=== PATIENT | female | born 1985 | race African-American/Black ===

== ENCOUNTER 2023-08-30 13:22 | Emergency (ER) | payer OTHER, SELFPAY ==
[2023-08-30 13:23] VITALS: BMI 34.5
[2023-08-30 13:25] VITALS: BP 171/102
[2023-08-30 13:59] LABS: % Basophils 0.2 % (0-2); % Eosinophils 1.3 % (0-6); % Immature Granulocytes 0.4 % (0-0.5); % Lymphocytes 27.8 % (20.5-51.1); % Monocytes 4.9 % (1.7-9.3); % Neutrophils 65.4 % (42.2-75.2); Absolute Eosinophils 0.1 10^3/uL (0-0.7); Absolute Lymphocytes 1.5 10^3/uL (1.2-3.4); Absolute Monocytes 0.3 10^3/uL (0.1-0.6); Absolute Neutrophils 3.5 10^3/uL (1.4-6.5); Hematocrit 29.7 % (37.0-47.0); Hemoglobin 10.4 g/dL (12.0-16.0); Mean Corpuscular Volume 88.7 fL (81.0-99.0); Mean Platelet Volume 11.7 fL (7.4-10.4); Nucleated Red Blood Cells % 0 %; Platelet Count 159 10^3/uL (130-400); Red Blood Cell Count 3.35 10^6/uL (4.20-5.40); Reticulocyte Count 8.6 % (0.4-2.8); White Blood Cell Count 5.3 10^3/uL (4.8-10.8)
[2023-08-30 14:09] LABS: ALT (SGPT) 41 U/L (0-35); AST (SGOT) 53 U/L (14-36); Albumin 5.1 g/dl (3.5-5.0); Alkaline Phosphatase 56 U/L (38-126); Blood Urea Nitrogen 8 mg/dl (7-17); Calcium 9.8 mg/dl (8.4-10.2); Carbon Dioxide 24 mmol/L (22-30); Chloride 106 mmol/L (98-107); Glucose 126 mg/dl (70-99); Sodium 137 mmol/L (135-145); Total Bilirubin 1.4 mg/dl (0.2-1.3); Total Protein 8.2 g/dl (6.3-8.2); eGFR > 60.00
--- NOTE | 2023-08-30 16:47 | ED.GENMED ---
History of Present Illness
General
Chief Complaint: Extremity Pain (non-traumatic)
Source: patient
Time Seen by Provider: 08/30/23 16:05
Travel History
Have you had any contact with someone who has COVID-19?: No
Do you have any symptoms of coronavirus? Fever > 100 degrees, chills, cough, shortness of breath, sore throat, loss of taste or smell, muscle aches, or headache?: No
History of Present Illness
History of Present Illness:
38-year-old female who presents with pain typical for her sickle cell. Patient reports pain in the left arm, chest, back and starting to form in her legs. The patient states this is typical for her crisis. Her line supply is at [facility].
Patient states she does not have pain medicines at home. No fevers or shortness of breath. No motor weakness. No headache
Past History
Past History
ED Past Medical History: Other (Sickle cell disease, GERD)
ED Past Surgical History: and Orthopedic
Phy Exam
Physical Exam
Physical Exam:
CONSTITUTIONAL Patient alert and oriented to person, place and time. Well-appearing. Vital signs reviewed.
HEAD atraumatic, normocephalic.
EYES eyelids normal to inspection, Extraocular muscles intact, Conjunctiva normal, Sclera normal.
NECK normal range of motion, Trachea midline, no jugular venous distention.
RESPIRATORY CHEST No respiratory distress noted, Chest expansion equal, Bilateral breath sounds clear.
CARDIOVASCULAR regular rate and rhythm, Heart sounds normal.
ABDOMEN abdomen nontender, Bowel sounds normal. No distention.
BACK normal inspection, no obvious deformities
UPPER EXTREMITY range of motion normal, Motor strength normal, no cyanosis, no edema.
LOWER EXTREMITY range of motion normal, Motor strength normal, no cyanosis, no edema.
NEURO Speech normal, No focal motor deficits, Mclean coma scale 15, Memory normal, Cranial Nerves intact to screening exam.
Course
Orders/Labs/Results
Orders:
Orders
08/30/23 13:33
Complete Blood Count/With Diff Urgent
Comprehensive Metabolic Panel Urgent
Reticulocyte Count Urgent
08/30/23 16:57
HYDROmorphone [Dilaudid] 1 mg IV NOW STA
Ondansetron Injectable [Zofran] 4 mg IV NOW STA
08/30/23 16:59
EKG [Electrocardiogram (*1)] Stat
Reason for Study: Chest Pain
EKG- Treatment ONCE
CR Chest - 2 Views Urgent
Comment:
Reason For Exam: cp, sickle cell
08/30/23 17:41
0.9% Sodium Chloride 1000 ml [Nss] 1,000 ml IV BOLUS
08/30/23 18:02
HYDROmorphone [Dilaudid] 2 mg IV NOW STA
08/30/23 19:15
HYDROmorphone [Dilaudid] 2 mg IV NOW STA
Abnormal Lab Results
08/30/23
13:33
RBC 3.35 L 10^6/uL
(4.20-5.40)
Hgb 10.4 L g/dL
(12.0-16.0)
Hct 29.7 L %
(37.0-47.0)
RDW 17.0 H %
(11.5-14.5)
MPV 11.7 H fL
(7.4-10.4)
Retic Count 8.6 H %
(0.4-2.8)
Creatinine 0.5 L mg/dL
(0.6-1.0)
Glucose 126 H mg/dl
(70-99)
Total Bilirubin 1.4 H mg/dl
(0.2-1.3)
AST 53 H U/L
(14-36)
ALT 41 H U/L
(0-35)
Albumin 5.1 H g/dl
(3.5-5.0)
08/30/23 13:33
08/30/23 13:33
Vital Signs
Temp: 98 F
Blood pressure: 132/78
Initial and Last Documented VS:
Initial Vital Signs
Temp Pulse Resp BP Pulse Ox
100.0 F 122 18 171/102 99
08/30/23 13:25 08/30/23 13:25 08/30/23 13:25 08/30/23 13:25 08/30/23 13:25
Last Documented Vital Signs
Temp Pulse Resp BP Pulse Ox
98 F 122 18 132/78 99
08/30/23 16:48 08/30/23 13:25 08/30/23 13:25 08/30/23 16:48 08/30/23 13:25
MDM/Problems Addressed
MDM/Problems Addressed:
Vaso-occlusive crisis
*Radiology
Radiology exam reviewed: all reviewed NAD by ED Provider
*Pulse Oximetry
Patient hypoxic: no
*EKG
Interpreted by ED Provider?: Yes
Interpretation: normal
Rate: normal
Rhythm: sinus
Fowler: normal axis
QRS Pattern: normal QRS
Ischemia: no ischemia
*Special Effects Specialist Interpretation
Rate: normal
Interpretation: normal
Rhythm: sinus
*Critical Care Note
Total Time (30-74mins, 75-104mins- exclusive of procedures): 40 minutes
Data Reviewed
Source: patient
Further Testing Considered But Not Given:
Consider blood cultures but afebrile no clinical suspicion for bacteremia
Patient Management
Escalation/DeEscalation of care consider admission/obs:
Patient does feel better. I do think outpatient follow-up and management is reasonable. No fever. No hypoxia. Outpatient hematology follow-up recommended
Update Note
Update Note:
PDMP shows 60 oxycodone filled 4 days ago. Will refer to her doctor for further medications if needed
ED Attending Note
-
Portions of this chart may have been created with voice recognition software.� Occasional wrong word or��sound alike� substitutions may have occurred due to the inherent limitations of voice recognition software.
Discharge Plan
Departure
Patient Disposition: Home (Routine Discharge)
Date of Disposition: 08/30/23
Time of Disposition: 20:18
Patient with high blood pressure during this ER visit?: No
Discharge Problem:
Sickle cell crisis
Instructions: Sickle Cell Disease Pain ED
Referrals:
UNKNOWN - PT DOES,NOT KNOW [Family Provider] -
Activity Restrictions/Additional Instructions:
Please drink plenty fluids and see your line supply in the next 3 days for follow-up and reevaluation. Return immediately for difficulty breathing, chest pain, fevers or any other concerns.
Interventions
Interventions:
*Risk Screen - Suicide Last Done: 08/30/23 13:25
*General Assessment Last Done: 08/30/23 13:25
*Neglect/Abuse Screening Last Done: 08/30/23 13:25
*ED COVID-19 Vaccine History Last Done: 08/30/23 13:25
Discharge Date and Time
Print Language: IRISH
[2023-08-30 17:34] VITALS: BP 138/89
[2023-08-30] MEDS: ZOFRAN 4 MG IV (17:34)
[2023-08-30] MEDS: DILAUDID 1 MG IV (17:34)
[2023-08-30] MEDS: NSS 1000 IV (17:42)
[2023-08-30 18:00] VITALS: BP 129/84
[2023-08-30] MEDS: DILAUDID 2 MG IV ×2 (18:18→19:38)
[2023-08-30 19:00] VITALS: BP 135/78
[2023-08-30 20:00] VITALS: BP 131/78
--- NOTE | 2023-08-30 20:46 | EDRN ---
Iv removed from right arm.
== END 2023-08-30 20:46 | disposition home or self-care (01) ==
LOC: EMR 13:22
PROVIDERS: Emergency Medicine; EMERGENCY PHYSICIAN Emergency Medicine
DX: D57.00 Hb-SS disease with crisis, unspecified (principal)
CPT/HCPCS: 99291; 96374; 96375; 96361; 96376 ×2; 71046; 80053; 85025; 85045; 93005

== ENCOUNTER 2024-09-17 13:32 | Emergency (ER) | payer OTHER, SELFPAY ==
[2024-09-17 13:35] VITALS: BP 159/95
[2024-09-17 14:20] VITALS: BMI 34.0
[2024-09-17 14:23] VITALS: BP 157/85
[2024-09-17 14:53] LABS: ALT (SGPT) 53 U/L (0-35); AST (SGOT) 53 U/L (14-36); Albumin 5.1 g/dl (3.5-5.0); Alkaline Phosphatase 55 U/L (38-126); Blood Urea Nitrogen 8 mg/dl (7-17); Calcium 9.8 mg/dl (8.4-10.2); Carbon Dioxide 24 mmol/L (22-30); Chloride 105 mmol/L (98-107); Estimated Creatinine Clearance > 125 ml/min; Glucose 109 mg/dl (70-99); Potassium 3.9 mmol/L (3.5-5.1); Sodium 140 mmol/L (135-145); Total Bilirubin 1.4 mg/dl (0.2-1.3); Total Protein 7.8 g/dl (6.3-8.2); eGFR > 60.00
[2024-09-17 14:54] LABS: % Basophils 0.9 % (0-2); % Eosinophils 0.6 % (0-6); % Immature Granulocytes 1.1 % (0-0.5); % Lymphocytes 32.8 % (20.5-51.1); % Monocytes 7.4 % (1.7-9.3); % Neutrophils 57.2 % (42.2-75.2); Absolute Basophils 0.1 10^3/uL (0-0.2); Absolute Immature Granulocytes 0.1 10^3/uL (0-0.05); Absolute Lymphocytes 1.8 10^3/uL (1.2-3.4); Absolute Monocytes 0.4 10^3/uL (0.1-0.6); Absolute Neutrophils 3.1 10^3/uL (1.4-6.5); Hematocrit 28.1 % (37.0-47.0); Hemoglobin 9.9 g/dL (12.0-16.0); Mean Corp Hgb Conc. 35.2 g/dL (33.0-37.0); Mean Corpuscular Hgb 31.1 pg (27.0-31.0); Mean Corpuscular Volume 88.4 fL (81.0-99.0); Mean Platelet Volume 10.8 fL (7.4-10.4); Nucleated Red Blood Cells % 1.1 %; Platelet Count 114 10^3/uL (130-400); Red Blood Cell Count 3.18 10^6/uL (4.20-5.40); Red Cell Dist. Width 16.9 % (11.5-14.5); White Blood Cell Count 5.4 10^3/uL (4.8-10.8)
[2024-09-17 15:00] VITALS: BP 148/88
--- NOTE | 2024-09-17 15:14 | ED.GENMED ---
History of Present Illness
General
Chief Complaint: Chest Pain
Source: patient
Exam Limitations: none
Time Seen by Provider: 09/17/24 15:02
Nursing documentation reviewed up to this point in time: agreed with
History of Present Illness
History of Present Illness:
Patient with history of sickle cell disease, presents to ED secondary to recurrent chest pain and arm pain starting yesterday afternoon, not responding to her medications at home, i.e. Motrin/OxyContin. Denies fever or chills. Denies coughing.
Denies headache. Denies nausea, vomiting, or diarrhea. Denies rash. Patient states that her pain is similar to her previous sickle cell crisis pain. Denies recent travel. Denies recent injury.
Past History
Past History
ED Past Medical History: Other (Sickle cell disease, GERD)
ED Past Surgical History: and Orthopedic
Review of Systems
Review of Systems
Allergies reviewed?: Yes
All Other Systems: ROS reviewed and negative except as documented in HPI and ROS
Constitutional: Reports no symptoms; Denies fever or chills
EENT: Reports no symptoms
Respiratory: Reports no symptoms; Denies cough or trouble breathing
Cardiac: Reports chest pain
ABD/GI: Reports no symptoms
: Reports no symptoms
Musculoskeletal: Reports other (arm pain)
Skin: Reports no symptoms
Neurological: Reports no symptoms; Denies dizzy or headache
Phy Exam
Physical Exam
Physical Exam:
Physical Exam
General: mild painful distress, not acutely ill. afebrile
Head: nc/at. eomi
Neck: supple. no meningeal signs. normal posterior pharynx
Heart: s1/s2 regular rate and rhythm.
Lungs: no acute respiratory distress. clear bilaterally
Abdomen: normal bowel sounds. not tender. no distention
Neuro: alert and oriented x 3. no focal neurological deficits
Skin: no rash
Psychiatric: well kept. interactive and cooperative
Extremities: no edema. no calf tenderness.
Scores
Heart Score for Chest Pain Patients
STEMI patient?: Not applicable
Course
Orders/Labs/Results
Orders:
Orders
09/17/24 13:37
EKG [Electrocardiogram (*1)] Urgent
Reason for Study: Chest Pain
EKG- Treatment ONCE
09/17/24 14:28
CMP [Comprehensive Metabolic Panel] Urgent
Complete Blood Count/With Diff Urgent
Reticulocyte Count Urgent
Comment: ADD ON
09/17/24 15:03
Add On- LAB Urgent
Tests Added?: reticulocyte count
09/17/24 15:05
0.9% Sodium Chloride 1000 ml [Nss] 1,000 ml IV BOLUS
HYDROmorphone [Dilaudid] 1 mg IV NOW STA
Ondansetron Injectable [Zofran] 4 mg IV NOW STA
09/17/24 15:27
HYDROmorphone [Dilaudid] 1 mg .ROUTE .STK-MED ONE
HYDROmorphone [Dilaudid] 1 mg IV NOW STA
09/17/24 16:25
Ketorolac [Toradol] 30 mg .ROUTE .STK-MED ONE
09/17/24 16:26
Ketorolac [Toradol] 30 mg IV NOW STA
09/17/24 17:36
Morphine Sulfate 4 mg IV NOW STA
09/17/24 18:45
HYDROmorphone [Dilaudid] 2 mg PO NOW STA
Abnormal Lab Results
09/17/24
14:28
RBC 3.18 L 10^6/uL
(4.20-5.40)
Hgb 9.9 L g/dL
(12.0-16.0)
Hct 28.1 L %
(37.0-47.0)
MCH 31.1 H pg
(27.0-31.0)
RDW 16.9 H %
(11.5-14.5)
Plt Count 114 L 10^3/uL
(130-400)
MPV 10.8 H fL
(7.4-10.4)
Abs Immat Gran (auto) 0.1 H 10^3/uL
(0-0.05)
Immature Gran % 1.1 H %
(0-0.5)
Retic Count 9.1 H %
(0.4-2.8)
Glucose 109 H mg/dl
(70-99)
Total Bilirubin 1.4 H mg/dl
(0.2-1.3)
AST 53 H U/L
(14-36)
ALT 53 H U/L
(0-35)
Albumin 5.1 H g/dl
(3.5-5.0)
09/17/24 14:28
09/17/24 14:28
Vital Signs
Initial and Last Documented VS:
Initial Vital Signs
Temp Pulse Resp BP Pulse Ox
99.0 F 106 17 159/95 99
09/17/24 13:35 09/17/24 13:35 09/17/24 13:35 09/17/24 13:35 09/17/24 13:35
Last Documented Vital Signs
Temp Pulse Resp BP Pulse Ox
99.0 F 88 18 143/93 100
09/17/24 13:35 09/17/24 18:45 09/17/24 18:45 09/17/24 18:00 09/17/24 18:45
MDM/Problems Addressed
MDM/Problems Addressed:
Blood work reviewed and discussed with patient, including reticulocyte count. After treatment, patient reports improving symptoms. Although patient does have mild residual pain, patient feels comfortable going home at this time. Patient does
request short course of pain medication. Patient will contact her primary phd intern upon discharge for an evaluation, as outpatient. Otherwise, patient is afebrile, hemodynamically stable, and appears comfortable at time of discharge.
*Critical Care Note
Total Time (30-74mins, 75-104mins- exclusive of procedures): Not Applicable
ED Attending Note
-
Portions of this chart may have been created with voice recognition software.� Occasional wrong word or��sound alike� substitutions may have occurred due to the inherent limitations of voice recognition software.
Discharge Plan
Departure
Patient Disposition: Home (Routine Discharge)
Date of Disposition: 09/17/24
Time of Disposition: 18:46
Patient with high blood pressure during this ER visit?: Yes
Condition: Good
Discharge Problem:
Sickle cell pain crisis
Instructions: Sickle cell disease pain - ED discharge instructions
Prescriptions:
New
oxycodone-acetaminophen [Percocet] 5-325 mg Tablet
1 tab PO Q6HPRN PRN (Reason: pain) Qty: 8 0RF
Referrals:
Micheal Raza MD [Family Provider] -
Activity Restrictions/Additional Instructions:
As discussed, please follow-up with your phd intern for reevaluation. Please return to ED with worsening symptoms. Your prescription has been sent electronically to [facility] pharmacy in [place].
Interventions
Interventions:
*Risk Screen - Suicide Last Done: 09/17/24 13:36
*General Assessment Last Done: 09/17/24 13:36
*Neglect/Abuse Screening Last Done: 09/17/24 13:36
*ED- Fall Risk Assessment Last Done: 09/17/24 14:20
*ED COVID-19 Vaccine History Last Done: 09/17/24 13:37
*Nursing Disposition Last Done: 09/17/24 18:57
ED- Cardiac Assessment Last Done: 09/17/24 14:20
Discharge Date and Time
Discharge Date/Time: 09/17/24 18:58
Print Language: THAI
[2024-09-17] MEDS: DILAUDID 1 MG IV ×2 (15:15→15:28)
[2024-09-17] MEDS: NSS 1000 IV (15:15)
[2024-09-17] MEDS: ZOFRAN 4 MG IV (15:15)
[2024-09-17 15:33] LABS: Reticulocyte Count 9.1 % (0.4-2.8)
[2024-09-17 16:00] VITALS: BP 160/89
[2024-09-17] MEDS: TORADOL 30 MG IV (16:26)
[2024-09-17] MEDS: MORPHINE SULFATE 4 MG IV (17:42)
[2024-09-17 17:45] VITALS: BP 145/89
[2024-09-17 18:00] VITALS: BP 143/93
[2024-09-17] MEDS: DILAUDID 2 MG PO (18:53)
== END 2024-09-17 18:58 | disposition home or self-care (01) ==
LOC: EMR 13:32
PROVIDERS: Physician Assistant; EMERGENCY PHYSICIAN Emergency Medicine; FAMILY PHYSICIAN Family Medicine
DX: D57.00 Hb-SS disease with crisis, unspecified (principal)
CPT/HCPCS: 96374; 96375; 96361; 99284; 80053; 85025; 85045; 93005